=== PATIENT | female | born 1975 | race Caucasian/White ===

== ENCOUNTER → 2020-09-09 | Outpatient (CLI) | payer OTHER ==
[2020-09-09 08:07] LABS: BASO % 0.3 % (0.0-2.0); EOS % 0.4 % (0-4.0); GRAN # 6.3 (1.4-6.5); GRAN % 67.4 % (42.2-75.2); HEMATOCRIT 39.9 % (37.0-47.0); HEMOGLOBIN 13.2 g/dl (12.5-16.0); LYMPH # 2.1 (1.2-3.4); LYMPH % 22.3 % (20.0-51.0); MEAN CELL VOLUME 100 fl (80.0-100.0); MEAN CORPUSCULAR HEMOGLOBIN 33 pg (27.0-31.0); MEAN CORPUSCULAR HGB CONC 33 g/dl (33.0-37.0); MEAN PLATELET VOLUME 9.9 fl (7.4-10.4); MONO # 0.9 (0.1-0.6); MONO % 9.3 % (1.7-9.3); PLATELET COUNT 293 K/mm3 (130-400); REDCELL DISTRIBUTION WIDTH-CV 12.5 % (11.5-14.5)
[2020-09-09 08:26] LABS: ALBUMIN 4.1 gm/dL (3.5-5.0); BILIRUBIN,TOTAL 0.6 mg/dL (0.0-1.0); CHOLESTEROL RISK RATIO 1.9; CREATININE, serum 0.82 (0.52-1.25); POTASSIUM 4.2 mmol/L (3.4-5.0); TOTAL PROTEIN 7.2 gm/dL (6.4-8.2)
[2020-09-09 08:56] LABS: THYROID STIMULATING HORMONE 3.58 uIU/mL (0.465-4.680)
[2020-09-09 18:04] LABS: FOLLICLE STIMULATING HORMONE 10.4 mIU/mL (())
== END ==
LOC: COL.LAB 06:56
PROVIDERS: Physician Assistant Medical
DX: Z13.1 Encounter for screening for diabetes mellitus (principal); Z13.220 Encounter for screening for lipoid disorders; Z00.00 Encounter for general adult medical examination without abnormal findings; Z13.0 Encounter for screening for diseases of the blood and blood-forming organs and certain disorders involving the immune mechanism; Z78.0 Asymptomatic menopausal state

== ENCOUNTER → 2020-11-03 | Outpatient (CLI) | payer OTHER ==
[~2020-11-03] MED LIST: IBU800 M1 PO; PERCOCET 325 MG1 TA2 PO
== END ==
LOC: MC.RAD 09:15
DX: Z12.31 Encounter for screening mammogram for malignant neoplasm of breast (principal)

== ENCOUNTER → 2021-04-17 | Outpatient (CLI) | payer OTHER ==
[2021-04-17 08:15] LABS: HEMATOCRIT 37.9 % (37.0-47.0); HEMOGLOBIN 12.3 g/dl (12.5-16.0); MEAN CELL VOLUME 101 fl (80.0-100.0); MEAN CORPUSCULAR HEMOGLOBIN 33 pg (27.0-31.0); MEAN CORPUSCULAR HGB CONC 33 g/dl (33.0-37.0); MEAN PLATELET VOLUME 9.5 fl (7.4-10.4); PLATELET COUNT 329 K/mm3 (130-400); RED BLOOD COUNT 3.76 M/mm3 (4.10-5.30); REDCELL DISTRIBUTION WIDTH-CV 11.9 % (11.5-14.5)
[2021-04-17 08:40] LABS: ALBUMIN 3.2 gm/dL (3.5-5.0); BILIRUBIN,TOTAL 0.2 mg/dL (0.2-1.2); CALCIUM 9.4 mg/dL (8.4-10.2); CREATININE, serum 0.98 mg/dL (0.57-1.11); POTASSIUM 4.4 mmol/L (3.5-4.5); TOTAL PROTEIN 6.7 gm/dL (6.2-8.1)
[2021-04-17 09:14] LABS: PH 7 (5-8); SQUAMOUS EPITHELIAL None Seen /hpf; URINE APPEARANCE Clear; URINE BACTERIA None Seen /hpf; URINE BILIRUBIN Negative (NEGATIVE); URINE BLOOD 2+ (NEGATIVE); URINE COLOR Yellow; URINE GLUCOSE Negative (NEGATIVE); URINE KETONE Negative (NEGATIVE); URINE LEUKOCYTE ESTERASE Negative (NEGATIVE); URINE NITRATE Negative (NEGATIVE); URINE PROTEIN(semi-quant) Negative (NEGATIVE); URINE UROBILINOGEN Negative (NEGATIVE); URINE WBC 0-2 /hpf
[2021-04-17 09:22] LABS: COLLECTION METHOD CLEAN CATCH
== END ==
LOC: COL.CARD 07:14 → COL.LAB 07:14 → COL.CARD 07:30
PROVIDERS: Student in an Organized Health Care Education/Training Program
DX: Z01.812 Encounter for preprocedural laboratory examination (principal); N93.9 Abnormal uterine and vaginal bleeding, unspecified

== ENCOUNTER 2021-04-21 07:57 | Inpatient (IN) | payer OTHER ==
[~2021-04-21] VITALS: Ht 165.1 cm; Wt 63.7 kg
[2021-04-21 08:47] VITALS: BP 126/82; PULSE 88; TEMP 98.9
--- NOTE | 2021-04-21 12:30 | NUR ---
Patient arrived to the room via bed. She is drowsy but oriented. Stated having some cramping to abdomen but denies nausea. Oriented to room. Vital signs stabe. Her visitor will be up soon. Call light within reach. NO other changes at this time.
[2021-04-21 14:15] VITALS: BP 110/71; BP 117/68; PULSE 89; PULSE 94; TEMP 97.8; TEMP 98
[2021-04-21 15:00] VITALS: BP 118/77; PULSE 100; TEMP 98.4
[2021-04-21 16:00] VITALS: BP 115/78; PULSE 92
--- NOTE | 2021-04-21 18:30 | NUR ---
Patient has been doing well this afternoon. She got up and walked in the hallways. No complaints of nausea. Has been having some abdominal cramping. Syed catheter in place, urine remains clear. Patient is tolerating regular diet. No other changes at this time. Call light within reach.
[2021-04-21 19:32] VITALS: BP 126/76; PULSE 87; TEMP 98.3
--- NOTE | 2021-04-21 22:33 | NUR ---
Patient assessed around 1950. Denies having pain and discomfort. 3 lap sites open to air. Indwelling hsieh catheter with clear, yellow urine via dependent drainage. Voices no questions, needs or concerns at this time. Resting in bed with call light within reach.
[2021-04-21 23:06] VITALS: BP 118/73; PULSE 94; TEMP 97.8
[2021-04-22 03:51] VITALS: BP 105/65; PULSE 91; TEMP 99.1
--- NOTE | 2021-04-22 06:03 | NUR ---
Patient has reported mild pain, and only received scheduled Motrin. Has denied wanting any further pain medication this shift. Voices no questions, needs, or concerns at this time. Resting in bed with call light within reach.
[2021-04-22 07:27] VITALS: BP 119/77; PULSE 91; TEMP 98.7
--- NOTE | 2021-04-22 08:30 | NUR ---
Discontinuing hsieh catheter as ordered by Dr Matos. Explained to patient that the Dr will be here between 10-1100 to see her. 10ml removed from catheter balloon. Statlock removed from leg. Patient was going to clean herself up and change her clothes. No other changes at this time. call light within reach.
--- NOTE | 2021-04-22 09:37 | NUR ---
YANNICK met with the patient and her friend, Waqas Toro (ph#[phone]), to discuss discharge plan. The patient lives alone in [place]. She reports independence with ADLs and does not have any DME. The patient's primary care provider is NILAM Beauchamp in [place] and she receives her medications from [facility]. She reports no difficulties obtaining her meds. The patient does not have a DPOA-HC, but she was interested in obtaining a form. YANNICK provided. The patient plans to return home upon discharge. No additional needs at this time. *Discharge plan: home*
[2021-04-22 11:21] VITALS: BP 117/74; PULSE 80; TEMP 98.5
[2021-04-22] MEDS ORDERED: IBU800 M1 PO (11:37)
[2021-04-22] MEDS ORDERED: PERCOCET 325 MG1 TA2 PO (11:37)
--- NOTE | 2021-04-22 12:10 | NUR ---
Patient is discharging home. Dr Matos ordered her to void one more time before discharging, she was able to void about 300ml. Discharge instructions discussed with patient. No questions verbalized INT discontinued. She had her belongings packed up already. Explained when follow up appointment is and lifting restriction. No questions verblaized. Copies of discharge instructions given to patient.
== END 2021-04-22 12:15 | disposition home or self-care (01) | DRG 743 ==
LOC: SDCO 07:57 → OB 11:18 → SURG 11:19
PROVIDERS: ADMIT Student in an Organized Health Care Education/Training Program
PROC: 0UT9FZZ Resection of Uterus, Via Natural or Artificial Opening With Percutaneous Endoscopic Assistance (ICD-10-PCS; principal; 2021-04-21 10:00)
PROC: 0UB77ZZ Excision of Bilateral Fallopian Tubes, Via Natural or Artificial Opening (ICD-10-PCS; 2021-04-21 10:00)
DX: N93.9 Abnormal uterine and vaginal bleeding, unspecified (principal); D64.9 Anemia, unspecified
CPT/HCPCS: A4314; A9284; J0330; J0690; J2250; J2704; J3010; J7120

== ENCOUNTER → 2021-08-21 | Outpatient (CLI) | payer OTHER | LOC: COL.RAD 08:48 | DX: S83.511A Sprain of anterior cruciate ligament of right knee, initial encounter (principal); S80.01XA Contusion of right knee, initial encounter ==

== ENCOUNTER 2021-09-01 14:17 | Outpatient (RCR) | payer OTHER ==
[2021-09-16] MEDS ORDERED: MULTI VITAMINS1 TAB PO (09:35)
[2021-09-16] MEDS ORDERED: ULTRAM 50MG TAB50 MG PO (11:50)
[2021-09-16] MEDS ORDERED: NORCO 325 MG-7.1 TAB PO (11:50)
== END 2021-09-21 | disposition home or self-care (01) ==
LOC: WSPT
DX: M25.561 Pain in right knee (principal)

== ENCOUNTER 2021-09-16 09:04 | Day surgery (SDC) | payer OTHER ==
[~2021-09-16] VITALS: Ht 165.1 cm; Wt 64.5 kg
[2021-09-16 09:31] VITALS: BP 116/73; PULSE 69; TEMP 97.5
[2021-09-16] MEDS ORDERED: MULTI VITAMINS1 TAB PO (09:35)
[2021-09-16] MEDS ORDERED: NORCO 325 MG-7.1 TAB PO (11:50)
[2021-09-16] MEDS ORDERED: ULTRAM 50MG TAB50 MG PO (11:50)
[2021-09-16 14:00] VITALS: BP 123/89; PULSE 73
--- NOTE | 2021-09-16 14:00 | NUR ---
Patient returns to room 5 per cart from PACU accopanied by Evie MONTOYA. Patient is awake and alert. Temp 97.3 and room air sats 94%. Right leg elevated on pillow with ice bag on the knee. Right foot warm to touch with +2 pulse. Catracho wrap dressing dry and IROM brace locked at full extension in place. Siderails up x2 and call light in reach.
[2021-09-16 14:15] VITALS: BP 118/73; PULSE 75
--- NOTE | 2021-09-16 14:15 | NUR ---
Room air sats 100%. Resting and eating ice cream. Drinking water. Denies pain. States that right leg feels numb from block placed pre-op for pain control post op. Continues to deny nausea.
[2021-09-16 14:20] VITALS: TEMP 97.3
[2021-09-16 14:30] VITALS: BP 125/88; PULSE 78
--- NOTE | 2021-09-16 15:00 | NUR ---
IV discontinued and site is free of redness. Given dismissal instructions and voices understanding of these. Right leg dressing clean and dry.
--- NOTE | 2021-09-16 15:17 | NUR ---
Patient dismissed to home driven by friend and taken to the front door per wheelchair and assisted into vehicle with dismissal instructions in hand.
== END 2021-09-16 15:17 | disposition home or self-care (01) ==
LOC: SDCO 09:04
DX: S83.511A Sprain of anterior cruciate ligament of right knee, initial encounter (principal)
CPT/HCPCS: C1713; J0171; J0690; J1100; J2250; J2405; J2704; J2795; J3010; J7120

== ENCOUNTER → 2021-09-21 | Outpatient (RCR) | payer OTHER ==
[~2021-09-21] MED LIST changes: +MULTI VITAMINS1 TAB PO; +NORCO 325 MG-7.1 TAB PO; +ULTRAM 50MG TAB50 MG PO
== END ==
LOC: WSPT
DX: S43.401A Unspecified sprain of right shoulder joint, initial encounter (principal); M25.561 Pain in right knee

== ENCOUNTER 2021-10-21 07:30 | Outpatient (RCR) | payer OTHER | END 2021-10-22 | disposition still patient (30) | LOC: WSPT | DX: S43.401A Unspecified sprain of right shoulder joint, initial encounter (principal); M25.561 Pain in right knee ==

== ENCOUNTER 2021-11-18 12:45 | Outpatient (RCR) | payer OTHER | END 2021-11-21 | disposition home or self-care (01) | LOC: WSPT | DX: S83.511D Sprain of anterior cruciate ligament of right knee, subsequent encounter (principal); X58.XXXD Exposure to other specified factors, subsequent encounter ==

== ENCOUNTER 2021-12-16 12:45 | Outpatient (RCR) | payer OTHER | END 2021-12-22 | disposition still patient (30) | LOC: WSPT | DX: M25.561 Pain in right knee (principal); Z98.890 Other specified postprocedural states ==

== ENCOUNTER → 2022-01-21 | Outpatient (RCR) | payer OTHER | END | disposition still patient (30) | LOC: WSPT | DX: M25.561 Pain in right knee (principal) ==

== ENCOUNTER 2022-02-16 16:30 | Outpatient (RCR) | payer OTHER | END 2022-02-21 | disposition home or self-care (01) | LOC: WSPT | DX: S83.511D Sprain of anterior cruciate ligament of right knee, subsequent encounter (principal); Z98.890 Other specified postprocedural states; X58.XXXD Exposure to other specified factors, subsequent encounter ==

== ENCOUNTER 2022-03-03 08:00 | Outpatient (RCR) | payer OTHER | END 2022-03-24 | LOC: WSPT | DX: M25.561 Pain in right knee (principal) ==

== ENCOUNTER → 2023-09-14 | Outpatient (CLI) | payer OTHER | LOC: MC.RAD 11:00 | DX: Z12.31 Encounter for screening mammogram for malignant neoplasm of breast (principal) ==